=== PATIENT | male | born 1960 | race American Indian/Alaskan Native ===

== ENCOUNTER 2018-05-21 07:30 | Day surgery (SDC) | payer MEDICARE ==
[2018-05-20 10:53] VITALS: BMI 39.0
[2018-05-21] MEDS ORDERED: Propofol 10 mg/ml Inj (20 ML) ONE (08:55)
--- NOTE | 2018-05-21 08:56 | CP.SDSHP ---
Same Day Surgery H & P - History Proposed Procedure: COLONSCOPY Pre-Op Diagnosis: SEE NOTES - Previous Medical/Surgical History Cardiac: Hypertension Endocrine/Metabolic: Other Neuro: Other Misc: Other Pain: 4.Moderate Pain - Allergies Allergies: Allergies No Known Allergies Allergy (Verified 07/16/15 10:31) - Physical Exam General Appearance: N Vital Signs: Vital Signs 05/21/18 08:00 Temperature 98.6 F Pulse Rate 70 Respiratory 19 Rate Blood Pressure 146/76 O2 Sat by Pulse 97 Oximetry Mental Status: Alert & Oriented x3 Neuro: WNL Heart: Other Lungs: WNL GI: Other - {Optional Preform as Required} Breast: WNL Abdomen: Other Rectal: Other Integument: WNL : WNL Ortho: Other ENT: WNL - Impression Pt. Evaluated Today:Candidate for Anesthesia & Procedure: Yes - Date & Time Time: 08:56 Short Stay Discharge - Short Stay Discharge Admitting Diagnosis/Reason for Visit: RECTAL BLEEDING Disposition: HOME/ ROUTINE
[2018-05-21] MEDS ORDERED: Belladonna-Phenobarbital PO STA (08:58)
[2018-05-21] MEDS ORDERED: Lactated Ringer's 1,000 ML IV ONE (09:00)
[2018-05-21 09:34] VITALS: TEMP 98; O2SAT 100
[2018-05-21 10:23] VITALS: RESP 12
[2018-05-21 10:52] VITALS: BP 107/73; PULSE 60
== END 2018-05-21 10:50 | disposition home or self-care (01) ==
LOC: C.ENDO 07:30
PROVIDERS: ATTEND Specialist
DX: D12.4 Benign neoplasm of descending colon (principal); D12.5 Benign neoplasm of sigmoid colon; K52.9 Noninfective gastroenteritis and colitis, unspecified; K64.0 First degree hemorrhoids; K62.5 Hemorrhage of anus and rectum
CPT/HCPCS: 45380; 88305; J2001; J2704; J7120